=== PATIENT | female | born 1980 | race African-American/Black ===

== ENCOUNTER 2024-09-10 02:35 | Emergency (ER) | payer MEDICARE, MEDICAID ==
[~2024-09-10] VITALS: Ht 170.2 cm; Wt 104.0 kg
[2024-09-10 02:41] VITALS: O2SAT 99
[2024-09-10] MEDS ORDERED: NAPR-1176 MT (06:01)
[2024-09-10] MEDS ORDERED: LIDO700A15 TP (06:01)
[2024-09-10] MEDS: ACETAMINOPHEN 325MG TABLET PO ONE (07:45)
[2024-09-10 07:47] VITALS: BP 133/84; PULSE 80; RESP 16; TEMP 36.78072; O2SAT 99
== END 2024-09-10 07:46 | disposition home or self-care (01) ==
LOC: ER 02:35
DX: G89.29 Other chronic pain (principal); M25.562 Pain in left knee
CPT/HCPCS: 73562; 99283